=== PATIENT | female | born 1940 ===

== ENCOUNTER 2017-12-20 00:48 | Emergency (ER) | payer MEDICAID ==
[2017-12-20 00:54] VITALS: BP 131/68; RESP 18; TEMP 97.7; O2SAT 100
--- NOTE | 2017-12-20 01:44 | ED PDOC ---
"HPI: General Adult Time Seen by Provider: 12/20/17 01:11 Chief Complaint (Nursing): Trauma Chief Complaint (Provider): FALL History Per: Family (77 Y/O FEMALE H/O DEMENTIA/HTN HERE WITH FAMILY FOR EVALUATION OF HEAD INJURY. FAMILY UNSURE OF EVENTS. NOTED PATIENT IN BED WITH BLOOD AND SWELLING ON FACE. PATIENT UNABLE TO RECALL EVENTS.) Past Medical History Reviewed: Historical Data, Nursing Documentation, Vital Signs Vital Signs: Last Vital Signs Temp 97.7 F 12/20/17 00:52 Pulse 101 H 12/20/17 01:47 Resp 18 12/20/17 00:52 BP 131/68 12/20/17 00:52 Pulse Ox 100 12/20/17 05:15 - Family History Family History: States: No Known Family Hx - Allergies Allergies/Adverse Reactions: Allergies Allergy/AdvReac Type Severity Reaction Status Date / Time Penicillins Allergy NAUSEA Verified 12/20/17 00:52 Review of Systems ROS Statement: Except As Marked, All Systems Reviewed And Found Negative Physical Exam - Reviewed Nursing Documentation Reviewed: Yes Vital Signs Reviewed: Yes - Physical Exam Appears: Positive for: Well, Non-toxic, No Acute Distress Head Exam: Positive for: NORMAL INSPECTION, NORMOCEPHALIC. Negative for: ATRAUMATIC (SWELLING NOTED ABOVE RIGHT EYEBROW) Skin: Positive for: Normal Color, Warm, DRY Eye Exam: Positive for: EOMI, Normal appearance, PERRL ENT: Positive for: Normal ENT Inspection Neck: Positive for: Normal, Painless ROM Cardiovascular/Chest: Positive for: Regular Rate, Rhythm Respiratory: Positive for: CNT, Normal Breath Sounds Gastrointestinal/Abdominal: Positive for: Normal Exam, Soft Back: Positive for: Normal Inspection Extremity: Positive for: Normal ROM Neurologic/Psych: Positive for: Alert, Oriented - Laboratory Results Result Diagrams: 12/20/17 01:47 12/20/17 01:47 - ECG O2 Sat by Pulse Oximetry: 100 - Progress ED Course And Treament: EKG: SINUS TACHYCARDIA 101BPM NO ECTOPY NO ACUTE CHANGES ct head: IMPRESSION: No acute intracranial hemorrhage. Thank you for allowing us to participate in the care of your patient. Dictated and Authenticated by: Genaro Tucker MD ct orbit/fx IMPRESSION: 1. There is a questionable RIGHT nasal bone fracture. 2. There is RIGHT periorbital soft tissue swelling/hematoma measuring 3 x 0.8 x 3 cm. Thank you for allowing us to participate in the care of your patient. Dictated and Authenticated by: Genaro Tucker MD IMPRESSION: There is acute anterior inferior corner fracture of C6. Thank you for allowing us to participate in the care of your patient. NADEEN NORRIS | Preliminary Radiology Report SWAGE TOOLSETTER (QA) DISCREPANCY? If there is a discrepancy between the preliminary and final interpretation, please notify [facility] via [email or web address]. If you do not have access to our QA portal, call our QA team at [phone] CONFIDENTIALITY STATEMENT This report is intended only for the use of the referring physician, and only in accordance with law, If you received this in error, call [phone] Page 2 of 2 Dictated and Authenticated by: Genaro Tucker MD D/W DR. CRUMP CT C SPINE RESULTS. Disposition - Clinical Impression Clinical Impression: Nasal fracture, Cervical vertebral fracture - Patient ED Disposition Is Patient to be Admitted: No - Disposition Disposition: Routine/Home Disposition Time: 05:54 Condition: FAIR Additional Instructions: FOLLOW UP WITH PMD/URGENT CARE/ED IN 5 DAYS FOR REMOVAL OF SUTURES Instructions: Neck Fracture (DC), Closed Head Injury, Laceration Repair With Stitches (DC), Nose Fracture (DC) Procedure: Wound Repair - Time Performed Time Performed: 05:14 - Time Out Time Out: Site verified - Consent Obtained Consent obtained: Verbal - Performed by Performed by: Mid-level Provider - Indications Indication(s):: Laceration - Location Location:: Right, Eyebrow Shape:: Linear Dimensions Length cm: 1.0CM Depth:: Epidermis - Anesthetic Technique Anesthetic Technique: Regional block Local/Regional Anesthetic:: Lidocaine 1% - Debris Debris:: None - Irrigated Irrigated with ml of normal saline: 150ML - Complexity Complexity:: Simple (one layer) - Wound repair method Sutures:: # (THREE), Size (6-0), Type (PROLENE), Technique (INTERRUPTED) - Patient tolerated procedure Patient Tolerated Procedure:: Well"
[2017-12-20 01:47] VITALS: PULSE 101
[2017-12-20 01:52] LABS: BASO # 0.1 K/uL (0.0-0.2); BASO % 0.9 % (0.0-2.0); EOS # 0.1 K/uL (0.0-0.7); EOS % 2.4 % (0.0-4.0); HEMOGLOBIN 11.8 g/dL (12.0-16.0); LYMPH # 1.5 K/uL (1.0-4.3); LYMPH % 25.4 % (20.0-40.0); MEAN CELL VOLUME 87.6 fl (81.0-99.0); MEAN CORPUSCULAR HEMOGLOBIN 29.4 pg (27.0-31.0); MEAN CORPUSCULAR HGB CONC 33.5 g/dL (33.0-37.0); MEAN PLATELET VOLUME 8.8 fl (7.2-11.7); MONO # 0.5 K/uL (0.0-0.8); MONO % 8.4 % (0.0-10.0); NEUT # 3.8 K/uL (1.8-7.0); NEUT % 62.9 % (50.0-75.0); RBC 4.03 Mil/uL (3.80-5.20); RED CELL DISTRIBUTION WIDTH 13.5 % (11.5-14.5); WHITE BLOOD COUNT 6.1 K/uL (4.8-10.8)
[2017-12-20 02:06] LABS: ALB/GLOB RATIO 1.4 (1.0-2.1); ALBUMIN 4.4 g/dL (3.5-5.0); ALT/SGPT 45 U/L (9-52); AST/SGOT 53 U/L (14-36); BLOOD UREA NITROGEN 18 mg/dl (7-17); CALCIUM 10.4 mg/dL (8.4-10.2); GFR AFRICAN-AMERICAN > 60; GFR NON-AFRICAN AMERICAN > 60
[2017-12-20] MEDS ORDERED: Tdap Vaccine 0.5 ml Vial (10-64 yrs) IM ONE ×2 (03:52→04:17)
[2017-12-20 04:45] LABS: SQUAMOUS EPITHIAL 1 /hpf (0-5); URINE BACTERIA RARE (<OCC); URINE BILIRUBIN NEGATIVE (NEGATIVE); URINE BLOOD MODERATE (NEGATIVE); URINE CLARITY SLIGHTY-CLOUDY (Clear); URINE COLOR STRAW (YELLOW); URINE GLUCOSE (UA) NEG (Normal); URINE LEUKOCYTE ESTERASE NEG Leu/uL (Negative); URINE PROTEIN NEGATIVE (NEGATIVE); URINE UROBILINOGEN 0.2-1.0 mg/dL (0.2-1.0)
[2017-12-20] MEDS ORDERED: Lidocaine 1% Inj (20ml) ONE (05:16)
--- NOTE | 2017-12-20 10:31 | CT ---
PROCEDURE: CT HEAD WITHOUT CONTRAST. HISTORY: head injury COMPARISON: None available. TECHNIQUE: Axial computed tomography images were obtained through the head/brain without intravenous contrast. Radiation dose: Total exam DLP = 871.9 mGy-cm. This CT exam was performed using one or more of the following dose reduction techniques: Automated exposure control, adjustment of the mA and/or kV according to patient size, and/or use of iterative reconstruction technique. FINDINGS: HEMORRHAGE: No intracranial hemorrhage. BRAIN: No mass effect or edema. Atrophy. Chronic microvascular ischemic changes. Left basal ganglia lacunar infarction. VENTRICLES: Unremarkable. No hydrocephalus. CALVARIUM: Unremarkable. PARANASAL SINUSES: Mild ethmoid air cell mucosal thickening. MASTOID AIR CELLS: Unremarkable as visualized. No inflammatory changes. OTHER FINDINGS: None. IMPRESSION: No acute intracranial pathology. Age-related changes.
--- NOTE | 2017-12-20 10:36 | CT ---
PROCEDURE: CT ORBITS WITHOUT CONTRAST. HISTORY: r/o facial fx COMPARISON: None available. TECHNIQUE: Axial CT images of the orbits were obtained. Coronal and sagittal reformats were generated. Radiation dose: Total exam DLP = 826.6 mGy-cm. This CT exam was performed using one or more of the following dose reduction techniques: Automated exposure control, adjustment of the mA and/or kV according to patient size, and/or use of iterative reconstruction technique. FINDINGS: RIGHT ORBIT: RIGHT BONY ORBIT: Normal. RIGHT INTRAORBITAL STRUCTURES: Globe: Normal. Extraocular muscles: Normal. Post septal space: Normal. Optic Nerve: Normal. Lacrimal Apparatus: Normal. RIGHT PRESEPTAL SOFT TISSUES: Right periorbital soft tissue swelling/hematoma. LEFT ORBIT: LEFT BONY ORBIT: Normal. LEFT INTRAORBITAL STRUCTURES: Globe: Normal. Extraocular muscles: Normal. Post septal space: Normal Optic Nerve: Normal. . Lacrimal Apparatus: Normal. LEFT PRESEPTAL SOFT TISSUES: Normal. OTHER: Minimally displaced right nasal bone fracture. IMPRESSION: Minimally displaced right nasal bone fracture. Right periorbital soft tissue swelling/hematoma.
--- NOTE | 2017-12-20 10:39 | CT ---
PROCEDURE: CT Cervical Spine without contrast HISTORY: neck injury COMPARISON: None available. TECHNIQUE: Axial computed tomography images were obtained of the cervical spine without the use of intravenous contrast. Coronal and sagittal reformatted images were created and reviewed. Radiation dose: Total exam DLP = 306.8 mGy-cm. This CT exam was performed using one or more of the following dose reduction techniques: Automated exposure control, adjustment of the mA and/or kV according to patient size, and/or use of iterative reconstruction technique. FINDINGS: VERTEBRAE: Anterior C6 vertebral body fracture extending to the C6-7 disc. T3 vertebral body hemangioma. Normal alignment. No destructive bony lesion. DISCS/SPINAL CANAL/NEURAL FORAMINA: Multilevel disc space narrowing with endplate changes. PARASPINAL SOFT TISSUES: Unremarkable. OTHER FINDINGS: None. IMPRESSION: Acute fracture of the anterior-inferior corner of C6 extending to the C6-7 disc space. Multilevel degenerative changes.
--- NOTE | 2017-12-20 18:04 | CARD ---
APPROVED REPORT EKG Measurement Heart [id number] <Conclusion> Sinus tachycardia Otherwise normal ECG
== END 2017-12-20 06:11 | disposition home or self-care (01) ==
LOC: H.ER 00:48
DX: S01.81XA Laceration without foreign body of other part of head, initial encounter (principal); S02.2XXA Fracture of nasal bones, initial encounter for closed fracture; S12.500A Unspecified displaced fracture of sixth cervical vertebra, initial encounter for closed fracture; W19.XXXA Unspecified fall, initial encounter; Y92.89 Other specified places as the place of occurrence of the external cause; F03.90 Unspecified dementia, unspecified severity, without behavioral disturbance, psychotic disturbance, mood disturbance, and anxiety; I10 Essential (primary) hypertension; Z88.0 Allergy status to penicillin
CPT/HCPCS: 12011; 70450; 70480; 72125; 80053; 81003; 82948; 84484; 85025; 87086; 90471; 90715; 93005; 96374; 99285; J2060

== ENCOUNTER 2017-12-25 15:40 | Emergency (ER) | payer MEDICAID ==
[2017-12-25 16:18] VITALS: BP 156/80; PULSE 79; RESP 18; TEMP 99; O2SAT 100
--- NOTE | 2017-12-25 16:27 | ED PDOC ---
HPI: Wound Care - HPI Time Seen by Provider: 12/25/17 16:18 Chief Complaint (Nursing): Suture/Staple Removal Chief Complaint (Provider): Suture removal History Per: Patient, Family (daughter) Exam Limitations: no limitations Onset/Duration Of Symptoms: Days (x7) Current Symptoms Are (Timing): Better Additional Complaint(s): 77 year old female presents to the ED with daughter for suture removal. Daughter states that seven days ago, patient tripped on her way to the bathroom and hit her right restorationism, which required three sutures to be placed there. Denies pain, drainage, swelling, or redness. PMD: Dr. Unique Johnson Past Medical History Reviewed: Historical Data, Nursing Documentation, Vital Signs Vital Signs: Last Vital Signs Temp 99.0 F 12/25/17 16:16 Pulse 79 12/25/17 16:16 Resp 18 12/25/17 16:16 BP 156/80 H 12/25/17 16:16 Pulse Ox 100 12/25/17 16:16 - Medical History PMH: Dementia, HTN, Hyperlipidemia - Surgical History Other surgeries: toe surgery - Family History Family History: States: Unknown Family Hx - Social History Current smoker - smoking cessation education provided: No Alcohol: None Drugs: Denies - Allergies Allergies/Adverse Reactions: Allergies Allergy/AdvReac Type Severity Reaction Status Date / Time Penicillins Allergy NAUSEA Verified 12/25/17 16:15 Review of Systems ROS Statement: Except As Marked, All Systems Reviewed And Found Negative Skin: Positive for: Other (3 sutures placed to right restorationism, with no redness, drianage, swelling, or pain) Physical Exam - Reviewed Nursing Documentation Reviewed: Yes Vital Signs Reviewed: Yes - Physical Exam Comments: GENERAL APPEARANCE: Patient is awake, alert, oriented x 3, in no distress. Skin: Warm and dry. [address] to a healing laceration to the lateral aspect of right eyebrow with (+) mild surrounding ecchymosis, (-) surrounding cellulitis, (-) drainage, (-) erythema (-) tenderness. Neck: Supple, FROM ENT: Mucus membranes moist. Pulmonary: lungs clear to auscultation bilaterally, no rhonchi, no wheezing, no rales. Cardiac: regular rate and rhythm - ECG O2 Sat by Pulse Oximetry: 100 (RA) Pulse Ox Interpretation: Normal Medical Decision Making Medical Decision Making: Time: 1625 Impression: wound check, suture removal Plan: --Sutures removed in ED by Lois LORENZ without difficulty or complications. Patient tolerated the procedure well. Based on history, exam and diagnostic results, plan will be for outpatient follow up. Patient instructed to follow-up with pmd / referral provided / the clinic in 1- 2 days without fail. Return to the emergency room at any time for any new or worsening symptoms. Patient states she fully agrees with and understands discharge instructions. States that she agrees with the plan and disposition. Verbalized and repeated discharge instructions and plan. I have given the patient opportunity to ask any additional questions. Scribe Attestation: Documented by Kandy Nash, acting as a scribe for Melissa Abreu PA-C. Provider Scribe Attestation: All medical record entries made by the Scribe were at my direction and personally dictated by me. I have reviewed the chart and agree that the record accurately reflects my personal performance of the history, physical exam, medical decision making, and the department course for this patient. I have also personally directed, reviewed, and agree with the discharge instructions and disposition. Disposition - Clinical Impression Clinical Impression: Removal of suture, Visit for wound care - Patient ED Disposition Is Patient to be Admitted: No Counseled Patient/Family Regarding: Diagnosis, Need For Followup - Disposition Referrals: Irina Johnson MD [Family Provider] - Disposition: Routine/Home Disposition Time: 16:29 Condition: STABLE Additional Instructions: FOLLOW UP WITH PMD IN IN 1-2 DAYS FOR FURTHER EVALUATION. RETURN TO ED WITH ANY NEW OR WORSENING SYMPTOMS. CONTINUE WOUND CARE AT HOME INSTRUCTED. Instructions: Stitches Removal, Wound Care Forms: [employer] (Irish) Print Language: FRISIAN - POA Present On Arrival: Falls Or Trauma (at the time of initial visit)
== END 2017-12-25 17:01 | disposition home or self-care (01) ==
LOC: H.ER 15:40
DX: Z48.02 Encounter for removal of sutures (principal)